=== PATIENT | female | born 1930 | race Caucasian/White ===

== ENCOUNTER → 2018-01-26 | Outpatient (CLI) | payer OTHER ==
[~2018-01-26] MED LIST: ACETAMINOPHEN325 M1 PO; CALCIUM 600 +1 EAC1 PO; CENTRUM SILVER1 EAC1 PO; CLARITIN10 MG PO; FISH OIL 1,0001 EAC5 PO; PERCOCET 5-3251 EACH PO; STOOL SOFTENER240 MG PO; VITAMIN D1000 UNI1 PO
== END ==
LOC: MRI 13:38
DX: M47.812 Spondylosis without myelopathy or radiculopathy, cervical region (principal); M50.223 Other cervical disc displacement at C6-C7 level; M50.323 Other cervical disc degeneration at C6-C7 level; M48.02 Spinal stenosis, cervical region